=== PATIENT | male | born 1985 ===

== ENCOUNTER 2017-03-01 04:24 | Emergency (ER) | payer SELFPAY ==
[2017-03-01 04:34] VITALS: BMI 25.8
[2017-03-01 04:37] VITALS: BP 116/69; PULSE 90; RESP 16; TEMP 98.1; O2SAT 98
[2017-03-01] MEDS ORDERED: Albuterol 0.083% Inhal Sol (2.5 mg/3 mL) UD INH ONE (05:13)
--- NOTE | 2017-03-01 05:18 | ED PDOC ---
HPI: General Adult Time Seen by Provider: 03/01/17 04:35 Chief Complaint (Nursing): Abdominal Pain Chief Complaint (Provider): cough, burning in chest History Per: Patient History/Exam Limitations: no limitations Onset/Duration Of Symptoms: Hrs Current Symptoms Are (Timing): Better Additional History Per: Patient Additional Complaint(s): 31 y/o male presents for eval of cough with burning in chest x 3 hours. Patient states he ate "a lot of food" at a cook out last night and smoked hookah. Patient states he felt something travel up from his stomach in to his chest, described as burning sensation. He states he then woke up in a coughing spell, which lasted approx 20 mins. Patient notes improvement of symptoms upon arrival. Denies fever, nausea/vomiting, shortness of breath, palpitations, changes in bowel movements. Past Medical History Reviewed: Historical Data, Nursing Documentation, Vital Signs Vital Signs: Last Vital Signs Temp 98.1 F 03/01/17 04:34 Pulse 90 03/01/17 04:34 Resp 16 03/01/17 04:34 BP 116/69 03/01/17 04:34 Pulse Ox 98 03/01/17 05:18 - Medical History PMH: No Chronic Diseases - Surgical History Surgical History: No Surg Hx - Family History Family History: States: Unknown Family Hx - Living Arrangements Living Arrangements: With Family - Home Medications Home Medications: Ambulatory Orders Medication Instructions Recorded Famotidine [Pepcid] 20 mg PO BID #14 tab 03/01/17 - Allergies Allergies/Adverse Reactions: Allergies Allergy/AdvReac Type Severity Reaction Status Date / Time No Known Allergies Allergy Verified 03/01/17 04:34 Review of Systems ROS Statement: Except As Marked, All Systems Reviewed And Found Negative Cardiovascular: Positive for: Chest Pain Respiratory: Positive for: Cough Physical Exam - Reviewed Nursing Documentation Reviewed: Yes Vital Signs Reviewed: Yes - Physical Exam Appears: Positive for: Well, Non-toxic, No Acute Distress Head Exam: Positive for: ATRAUMATIC, NORMAL INSPECTION, NORMOCEPHALIC Skin: Positive for: Normal Color Eye Exam: Positive for: Normal appearance ENT: Positive for: Normal ENT Inspection Cardiovascular/Chest: Positive for: Regular Rate, Rhythm Respiratory: Positive for: Normal Breath Sounds Gastrointestinal/Abdominal: Positive for: Normal Exam Back: Positive for: Normal Inspection Extremity: Positive for: Normal ROM Neurologic/Psych: Positive for: Alert, Oriented - Laboratory Results Result Diagrams: 03/01/17 05:21 03/01/17 05:21 - ECG ECG: Positive for: Viewed By Me (reviewed by Ed attending) ECG Rhythm: Positive for: Sinus Rhythm O2 Sat by Pulse Oximetry: 98 - Radiology X-Ray: Viewed By Me X-Ray Interpretation: No Acute Disease - Progress ED Course And Treament: labs, ekg, chest xray, pepcid, albuterol neb On re-eval, patient states he is feeling better. Patient educated on findings, discharged with rx pepcid. Advised follow up PMD 2-3 days. Return to ED for worsneing/concerning symptoms. Disposition - Clinical Impression Clinical Impression: Atypical chest pain Counseled Patient/Family Regarding: Studies Performed, Diagnosis, Need For Followup, Rx Given - Disposition Referrals: [facility] [Outside] Disposition: Routine/Home Disposition Time: 06:08 Condition: IMPROVED
[2017-03-01 05:25] LABS: BASO % 0.6 % (0.0-2.0); EOS # 0.1 K/uL (0.0-0.7); EOS % 2.2 % (0.0-4.0); HEMOGLOBIN 16.3 g/dL (12.0-18.0); LYMPH % 42.9 % (20.0-40.0); MEAN CELL VOLUME 90.2 fl (80.0-94.0); MEAN CORPUSCULAR HEMOGLOBIN 30.8 pg (27.0-31.0); MEAN CORPUSCULAR HGB CONC 34.1 g/dL (33.0-37.0); MEAN PLATELET VOLUME 7.8 fl (7.2-11.7); MONO # 0.4 K/uL (0.0-0.8); MONO % 7.8 % (0.0-10.0); NEUT # 2.2 K/uL (1.8-7.0); NEUT % 46.5 % (50.0-75.0); NRBC % 0.2 % (0.0-0.0); RBC 5.29 Mil/uL (4.40-5.90); RED CELL DISTRIBUTION WIDTH 12.4 % (11.5-14.5); WHITE BLOOD COUNT 4.7 K/uL (4.8-10.8)
[2017-03-01 05:33] LABS: ALB/GLOB RATIO 1.5 (1.0-2.1); ALBUMIN 4.3 g/dL (3.5-5.0); ALT/SGPT 54 U/L (21-72); AST/SGOT 25 U/L (17-59); BLOOD UREA NITROGEN 13 mg/dl (9-20); CALCIUM 8.9 mg/dL (8.4-10.2); GFR AFRICAN-AMERICAN > 60; GFR NON-AFRICAN AMERICAN > 60; LIPASE 60 U/L (23-300)
--- NOTE | 2017-03-01 08:42 | CARD ---
APPROVED REPORT EKG Measurement Heart [id number] <Conclusion> Normal sinus rhythm Normal ECG
--- NOTE | 2017-03-01 11:41 | RAD ---
HISTORY: cough COMPARISON: No prior. TECHNIQUE: Chest PA and lateral FINDINGS: LUNGS: The lungs are well inflated and clear. PLEURA: No significant pleural effusion identified. No pneumothorax apparent. CARDIOVASCULAR: Normal. OSSEOUS STRUCTURES: No significant abnormalities. VISUALIZED UPPER ABDOMEN: Normal. OTHER FINDINGS: None. IMPRESSION: No active pulmonary disease.
== END 2017-03-01 06:14 | disposition home or self-care (01) ==
LOC: H.ER 04:24
DX: R07.89 Other chest pain (principal); R10.13 Epigastric pain